=== PATIENT | female | born 1970 | race Caucasian/White ===

== ENCOUNTER → 2016-07-23 07:58 | Day surgery (SDC) | payer BC ==
[~2016-07-23 07:58] MED LIST: Acetaminophen TAB* 325 MG PO PRN; Acetic Acid 0.25%* 250 ML BTL ONE; Buffered Lidocaine 1% SYRIN* 3 ML/SYR SYRINGE INTRADERM ONE; Chloroprocaine 2%* 20 ML VIAL ONE; Ferric Subsulfate* 8 ML BTL ONE; Ibuprofen TAB* 600 MG PO PRN; Iodine Strong (LUGOL'S)* 14 ML BTL ONE; Midazolam* 1 MG/ML 5 ML VIAL (5 MG) ONE; Ondansetron INJ* 2 MG/ML VIAL IV PRN; Phenylephrine INJ* 10 MG/ML 1 ML VIAL (10 MG) ONE; fentaNYL* 50 MCG/ML 2 ML VIAL (100 MCG VIAL) ONE
[2016-07-23 12:06] VITALS: BP 161/98
--- NOTE | 2016-07-25 22:10 | OP ---
OPERATIVE REPORT: DATE OF OPERATION: 07/23/16 DATE OF : 68 SURGEON: Chuy Briseno MD ANESTHESIA: Spinal. PRE-OP DIAGNOSIS: Cervical mild dysplasia within the endocervical canal. POST-OP DIAGNOSIS: Cervical mild dysplasia within the endocervical canal. Pending pathology. OPERATIVE PROCEDURE: Loop electrocautery excision procedure and colposcopy. ESTIMATED BLOOD LOSS: None. SPECIMEN SENT TO PATHOLOGY: Cervical LEEP biopsy, which was tagged at 12 o'clock. FLUIDS: 600 cc of IV fluids. URINE OUTPUT: 100 cc of clear urine. FINDINGS: Inspection under anesthesia revealed grossly normal cervix and on colposcopy, the patient was noted to have an acetowhite lesions at 10 o'clock position at the external cervical os. There were no abnormal blood vessels noted on colposcopy and the colposcopy was deemed to be adequate ____ _. DESCRIPTION OF PROCEDURE: After the colposcopy, I then proceeded to do a cervical LEEP biopsy. A l oop was set at 50 pure cut and the biopsy was obtained. This was tagged at 12 o'clock and sent to p athology. The bed where the biopsy had been obtained was then cauterized with cautery and good hemo stasis was noted. There was no bleeding. At this point, all the instruments were removed from the patient's vagina. Sponge, lap, and needle counts were correct x2. She was then transferred to [facility] room area in stable condition. [id number]/[facility] #: [id number]
== END | disposition home or self-care (01) ==
LOC: OR 07:58
PROVIDERS: ATTEND Obstetrics & Gynecology
DX: N87.0 Mild cervical dysplasia (principal); Z72.0 Tobacco use; J44.9 Chronic obstructive pulmonary disease, unspecified; R00.0 Tachycardia, unspecified; J45.909 Unspecified asthma, uncomplicated; F41.8 Other specified anxiety disorders
CPT/HCPCS: 88307; A9270-GY; J2250; J2400; J3010